=== PATIENT | female | born 1950 | race Caucasian/White ===

== ENCOUNTER → 2016-11-12 | Day surgery (SDC) | payer BC ==
[~2016-11-12] MED LIST: ASPIRIN81 MG PO
--- NOTE | ~2016-11-12 | OR ---
Unit #: [id number] #: [id number] Patient: TONY ROLON [id number] [address] [address] [id number] MR#: [id number] NAME: TONY ROLON ROOM: Date of Procedure: 11/12/2016 Admission Date: 11/12/2016 Surgeon: Guanakito Dumas M.D. : 1950 Attending Physician: Guanakito Dumas M.D. OPERATIVE REPORT PRIMARY CARE PHYSICIAN Dr. Ernesto Kiran. PREOPERATIVE DIAGNOSIS Colorectal cancer screening in an average-risk patient. PROCEDURES PERFORMED Colonoscopy and polypectomy. POSTOPERATIVE DIAGNOSES 1. The patient had two polyps in the descending colon and one in the sigmoid colon. They ranged in size from 5 mm to 2 cm each. All the polyps were removed using snare polypectomy. They were retrieved and sent for histology. 2. Mild sigmoid diverticulosis. 3. Rest of the examination up to cecum and terminal ileum was normal. The quality of the prep was excellent. RECOMMENDATIONS 1. Follow up the results of polyp histology. 2. Repeat colonoscopy in 5 years. SEDATION USED MAC. DESCRIPTION OF PROCEDURE Following detailed explanation of the potential risks and complications of a colonoscopy, namely perforation, bleeding, and complications related to sedation, the patient was brought to GI lab and laid in the left lateral decubitus position. A digital rectal examination was performed, which was normal. Lubricated tip of the Olympus video colonoscope was inserted through the anus and advanced under direct vision. The scope was advanced past rectosigmoid into descending colon. Few small diverticula were seen in this area. The scope tip was then navigated all the way up to cecum with visualization of the ileocecal valve and the appendiceal orifice. Preparation was excellent with good visualization and photodocumentation was obtained. Last few inches of the terminal ileum were also visualized after intubation of the ileocecal valve and appeared normal. Successive segments of the colonic mucosa were examined upon withdrawal. A diminutive sessile polyp was noted at the splenic flexure and removed using cold biopsy forceps. A second larger polyp which was about 1.5 cm in size was seen in the proximal descending colon. It was also removed Unit #: [id number] #: [id number] Patient: PRESLER,TONY using snare cautery polypectomy. A third polyp was found in the sigmoid colon, which was pedunculated and about 2 cm in size. It was also removed using snare cautery polypectomy. All the polyps were retrieved and sent for histology. No additional polyps were noted. The patient did have left-sided diverticulosis as noted earlier. No internal hemorrhoids were seen at the anal verge. The scope was then withdrawn. The patient returned to the recovery area. She tolerated the procedure without any postprocedure complications. Dictated by... Singh Evans/eriberto TD: 11/12/2016 15:32 JOB #: [id number] OPERATIVE REPORT X Guanakito Dumas MD X PROCEDURE OPERATIVE NOTE
== END | disposition home or self-care (01) ==
LOC: COPS 11:05
DX: Z12.11 Encounter for screening for malignant neoplasm of colon (principal); D12.4 Benign neoplasm of descending colon; D12.5 Benign neoplasm of sigmoid colon; K57.30 Diverticulosis of large intestine without perforation or abscess without bleeding; F17.210 Nicotine dependence, cigarettes, uncomplicated; Z79.82 Long term (current) use of aspirin; Z98.51 Tubal ligation status; Z98.890 Other specified postprocedural states
CPT/HCPCS: 88305